=== PATIENT | male | born 1990 | race Two or more races ===

== ENCOUNTER → 2016-11-25 | Outpatient (REF) | payer BC ==
[2016-11-26 09:26] LABS: HIV SCRN NEGATIVE (NEGATIVE)
[2016-11-26 09:27] LABS: CONTROL LINE INT CTR LINE PRESENT; HIV SCRN1 NEGATIVE (NEGATIVE)
== END ==
LOC: M SFHCPLAZ 15:29
PROVIDERS: ATTEND Family Medicine
DX: N45.1 Epididymitis (principal); Z11.59 Encounter for screening for other viral diseases